=== PATIENT | female | born 1970 | race Caucasian/White ===

== ENCOUNTER 2018-05-15 14:36 | Outpatient (CLI) | payer BC ==
--- NOTE | 2018-05-15 15:32 | RAD ---
RADIOGRAPH CHEST 2 VIEWS: HISTORY: 47-year-old female with cough and fever. FINDINGS: There is no air space density, pulmonary edema, pleural effusion, pneumothorax, or cardiomegaly. Ther e is a pectus excavatum. IMPRESSION: No acute cardiopulmonary findings. jn POS: [facility]
== END 2018-05-15 14:37 | disposition home or self-care (01) ==
LOC: SCSRAD 14:36
PROVIDERS: ATTEND Family Medicine
DX: J15.9 Unspecified bacterial pneumonia (principal)
CPT/HCPCS: 71046

== ENCOUNTER 2019-09-22 07:37 | Outpatient (CLI) | payer BC ==
--- NOTE | 2019-09-22 08:05 | ULT ---
ULTRASOUND ABDOMEN: HISTORY: Right upper quadrant pain. FINDINGS: The liver demonstrates increased echogenicity consistent with fatty infiltration. No focal mass or i ntrahepatic ductal dilatation is seen. The gallbladder, pancreas, spleen, kidneys, and visualized portions of the aorta and IVC appear kemar l. The common duct measures 3 mm in diameter. No free fluid is seen. IMPRESSION: 1. Fatty liver. 2. No evidence of cholelithiasis. POS: [facility]
== END 2019-09-22 07:38 | disposition home or self-care (01) ==
LOC: SCSULT 07:37
PROVIDERS: ATTEND Family Medicine
DX: R10.11 Right upper quadrant pain (principal); K76.0 Fatty (change of) liver, not elsewhere classified
CPT/HCPCS: 76705

== ENCOUNTER 2021-11-26 15:00 | Outpatient (CLI) | payer BC | END 2021-11-26 15:01 | disposition home or self-care (01) | LOC: SCSRAD 15:00 | PROVIDERS: ATTEND Family Medicine | DX: M54.2 Cervicalgia (principal); M47.812 Spondylosis without myelopathy or radiculopathy, cervical region | CPT/HCPCS: 72040 ==